=== PATIENT | female | born 1980 | race Caucasian/White ===

== ENCOUNTER → 2017-01-29 | Outpatient (CLI) | payer BC ==
[~2017-01-29] MED LIST: ACHYD1T PO; CIPR-225 PO; DCS100C PO; DOCU100C37 PO; HYDR-3720 PO; HYDR-3730 PO; IBP800T PO; IBUP-1780 PO; Ibuprofen PO; METR500T PO; MULT1TAB61 PO; OXYC-465 PO
--- NOTE | 2017-01-29 10:11 | Diagnostic Imaging Report ---
PROCEDURE: US Gallbladder. TECHNIQUE: Multiple real-time grayscale images were obtained over the right upper quadrant in various projections. INDICATION: Right upper quadrant pain. FINDINGS: The pancreas appears unremarkable. The liver is fairly homogeneous with no focal lesion. It is measuring 18.6 cm in the diagonal craniocaudal dimension which is near the upper limits of normal. Hepatopetal flow in the portal vein is seen. The gallbladder demonstrates no stones or wall thickening. The CBD is 3 mm in caliber. The sonographic Lopes sign is reportedly negative. The right kidney is 10.8 cm in length with no hydronephrosis or focal lesion seen. No fluid collection in the upper right abdomen is noted. IMPRESSION: Unremarkable exam. Dictated by: Dictated on workstation # [id number]
== END ==
LOC: RAD 07:18
PROVIDERS: ATTEND Internal Medicine
DX: R10.11 Right upper quadrant pain (principal)
CPT/HCPCS: 76705

== ENCOUNTER → 2017-03-23 | Outpatient (CLI) | payer BC ==
[~2017-03-23] MED LIST changes: +CATHETER FLUSH 10 ML SYR IV PRN; +HYDR-3816 PO; +morphine INJ 10 MG/ML 1ML (SYR OR VIAL) IVP ONE; +morphine INJ 10 MG/ML 1ML (SYR OR VIAL) ONE
--- NOTE | 2017-03-23 20:41 | Diagnostic Imaging Report ---
Hepatobiliary scan with ejection fraction INDICATION: Right upper quadrant pain The study was performed following administration of 4.5 mCi of Choletec. The previous nuclear medicine hepatobiliary scan of 11/01/12 failed to show any sign of acute cholecystitis or for obstruction of the common bile duct. The ejection fraction was 58% (normal greater than 35%). On this exam, there was no uptake of the radiotracer by the gallbladder until 90 minutes (normal uptake less than 30 minutes). The reason for the diminished uptake is not certain. At 90 minutes, 2.8 mg of morphine was administered. The subsequent images performed over the next 45 minutes revealed that there was accumulation of the radiotracer within the gallbladder. There is also extension of the radiotracer into the small bowel indicating that the common bile duct is not obstructed. The ejection fraction is not calculated for this exam. IMPRESSION: 1. There is delayed uptake of the radiotracer by the gallbladder. This does suggest chronic cholecystitis. 2. There is no evidence for obstruction of the common bile duct. 3. The ejection fraction was not obtained. ADDENDUM: The patient was instructed by Dr. Braden Pederson to pump and discard breastmilk for 48 hours following the exam. Dictated by: Dictated on workstation # [id number]
== END ==
LOC: CARD 09:54
PROVIDERS: ATTEND Obstetrics & Gynecology
DX: R10.11 Right upper quadrant pain (principal)
CPT/HCPCS: 78226

== ENCOUNTER 2017-05-14 08:57 | Outpatient (CLI) | payer BC ==
[~2017-05-14] VITALS: Ht 162.6 cm; Wt 68.0 kg
[~2017-05-14 08:57] MED LIST changes: -CATHETER FLUSH 10 ML SYR IV PRN; -HYDR-3816 PO; -morphine INJ 10 MG/ML 1ML (SYR OR VIAL) IVP ONE; -morphine INJ 10 MG/ML 1ML (SYR OR VIAL) ONE
[2017-05-14 09:10] VITALS: BP 122/84
[2017-05-14 09:36] LABS: BASOPHILS % (AUTO) 1 % (0-10); EOSINOPHILS % (AUTO) 1 % (0-10); LYMPHOCYTES # (AUTO) 0.9 X 10^3 (1.0-4.0); LYMPHOCYTES % (AUTO) 23 % (12-44); MEAN CORPUSCULAR HEMOGLOBIN 29 PG (25-34); MEAN CORPUSCULAR HGB CONC 34 G/DL (32-36); MEAN CORPUSCULAR VOLUME 86 FL (80-99); MONOCYTES # (AUTO) 0.4 X 10^3 (0.0-1.0); MONOCYTES % (AUTO) 9 % (0-12); NEUTROPHILS # (AUTO) 2.8 X 10^3 (1.8-7.8); NEUTROPHILS % (AUTO) 67 % (42-75); PLATELET COUNT 192 10^3/uL (130-400); RED CELL DISTRIBUTION WIDTH 13.2 % (10.0-14.5); WHITE BLOOD COUNT 4.1 10^3/uL (4.3-11.0)
== END 2017-05-14 10:24 | disposition home or self-care (01) ==
LOC: PREOP 08:57
PROVIDERS: ATTEND Surgery
DX: Z01.812 Encounter for preprocedural laboratory examination (principal); K81.9 Cholecystitis, unspecified
CPT/HCPCS: 36415; 85025; 87081

== ENCOUNTER 2017-05-17 07:00 | Day surgery (SDC) | payer BC ==
[~2017-05-17] VITALS: Ht 162.6 cm; Wt 68.0 kg
[2017-05-17 07:00] VITALS: BP 111/78
[2017-05-17] MEDS ORDERED: BUP/EPI 0.5% 1:200,000 (MARCAINE) 10ML VIAL IJ ONE (07:13)
[2017-05-17] MEDS ORDERED: ceFAZolin 1 GM/NS 50 ML IVPB IV ONE ×2 (07:15)
[2017-05-17] MEDS ORDERED: MIDAZOLAM 2 MG/2 ML (VERSED) VIAL ONE (07:36)
[2017-05-17] MEDS ORDERED: LIDOCAINE PF 2% 5 ML (XYLOCAINE) VIAL ONE (07:36)
[2017-05-17] MEDS ORDERED: ONDANSETRON 4 MG/2 ML (SDV) Z0FRAN ONE ×2 (07:36→09:44)
[2017-05-17] MEDS ORDERED: SEVOFLURANE (ULTANE) 15 ML INHAL SOLN ONE ×2 (07:36→07:40)
[2017-05-17] MEDS ORDERED: proPOfol 200 MG/20 ML (DIPRIVAN) VIAL IV ONE (07:36)
[2017-05-17] MEDS ORDERED: ROCURONIUM 50 MG/5 ML (ZEMURON) VIAL IV ONE (07:36)
[2017-05-17] MEDS ORDERED: DEXAMETHASONE 10 MG/ML (DECADRON) 1 ML VIAL ONE (07:36)
[2017-05-17] MEDS ORDERED: fentaNYL INJECTION 100 MCG/2 ML AMP ONE ×2 (07:36→08:57)
--- NOTE | 2017-05-17 07:46 | Progress Note-Pre Operative ---
Pre-Operative Progress Note H&P Reviewed The H&P was reviewed, patient examined and no changes noted. Date Seen by Provider: May 17, 2017 Time Seen by Provider: 07:35 Date H&P Reviewed: May 17, 2017 Time H&P Reviewed: 07:40 Pre-Operative Diagnosis: symptomatic Chronic Acalculous cholecystitis TAWNYA GOODE APRN May 17, 2017 7:46 am
[2017-05-17] MEDS: LACTATED RINGERS 1,000 ML IV PRN ×2 (07:48→08:46)
[2017-05-17] MEDS ORDERED: ONDANSETRON 4 MG/2 ML (SDV) Z0FRAN IVP PRN ×2 (08:00→09:00)
[2017-05-17] MEDS ORDERED: morphine INJ 10 MG/ML 1ML (SYR OR VIAL) IVP PRN ×2 (08:00→09:00)
[2017-05-17] MEDS ORDERED: HYDROcodone/APAP 5 MG/325 MG (LORTAB) TAB PO ONE (08:00)
[2017-05-17] MEDS ORDERED: ACETAMINOPHEN 325 MG TABLET/CAPLET (TYLENOL) PO PRN (08:00)
[2017-05-17] MEDS ORDERED: MEPERIDINE (DEMEROL) INJ 50 MG/ML IVP PRN (09:00)
[2017-05-17] MEDS ORDERED: NEOSTIGMINE (BLOXIVERZ ) 1 MG/1ML 10 ML VIAL ONE (09:12)
[2017-05-17] MEDS ORDERED: GLYCOPYRROLATE 0.2 MG/ML (ROBINUL) 2 ML VIAL ONE (09:12)
--- NOTE | 2017-05-17 09:41 | Progress Note-Post Operative ---
Post-Operative Progess Note Surgeon (s)/Dairy Cattle Farm Manager (s) Surgeon SOLEDAD BOLAÑOS MD Dairy Cattle Farm Manager: reginald walker DIESEL RETROFIT DESIGNER Pre-Operative Diagnosis symptomatic Chronic Acalculous cholecystitis Post-Operative Diagnosis same Procedure & Operative Findings Date of Procedure 05/17/17 Procedure Performed/Findings laparoscopic cholecystectomy. Anesthesia Type GET Estimated Blood Loss Estimated blood loss (mL): minimal Specimens/Packing Specimens Removed gallbladder SOLEDAD BOLAÑOS MD May 17, 2017 9:41 am
[2017-05-17] MEDS ORDERED: MEPERIDINE (DEMEROL) INJ 50 MG/ML ONE (09:44)
[2017-05-17] MEDS ORDERED: morphine INJ 10 MG/ML 1ML (SYR OR VIAL) ONE (09:44)
[2017-05-17] MEDS ORDERED: HYDR-3816 PO (09:45)
--- NOTE | 2017-05-17 09:47 | Discharge Inst-Surgical ---
D/C Lap Instructions-MAMI New, Converted, or Re-Newed RX: RX on Chart Follow Up Appt in 2 weeks Activity as tolerated No driving for 24 hours No driving while on pain medications Incentive Spirometry use every 2 hours while awake Regular Diet Symptoms to Report: Fever over 101 degree F, Nausea/Vomiting Infection Signs and Symptoms to report: Increased redness, Foul odor of wound, Increased drainage Bathing instructions: May shower Operative Area Clean/Dry; Keep incision clean/dry If any problems/questions: Contact your physician or go to Emergency Room SOLEDAD BOLAÑOS MD May 17, 2017 9:47 am
[2017-05-17] MEDS ORDERED: PROMETHAZINE INJ 25 MG/ML (PHENERGAN) AMP ONE (10:17)
[2017-05-17] MEDS ORDERED: PROMETHAZINE INJ 25 MG/ML (PHENERGAN) AMP IVP PRN (10:30)
[2017-05-17 11:10] VITALS: BP 134/85
[2017-05-17 11:45] VITALS: BP 121/77
[2017-05-17 12:15] VITALS: BP 121/80
--- NOTE | 2017-05-17 13:53 | OPERATIVE REPORT ---
DATE OF SERVICE: 05/17/2017 ATTENDING PRIMARY CARE PHYSICIAN: Dr. Ellis. PREOPERATIVE DIAGNOSIS: Symptomatic chronic acalculous cholecystitis. POSTOPERATIVE DIAGNOSIS: Symptomatic chronic acalculous cholecystitis. PROCEDURE: Laparoscopic cholecystectomy. SURGEON: Dr. Bolaños. DECK ENGINE OPERATOR: Osmin Vázquez APRN. ANESTHESIA: General endotracheal. ESTIMATED BLOOD LOSS: Minimal. FINDINGS: Mild gallbladder wall dilatation. No stones identified. DISPOSITION: The patient tolerated the procedure well. INDICATIONS: The patient is a 37-year-old female initially seen by us 06/2016 for appendicitis and underwent a laparoscopic appendectomy as well as an open umbilical hernia repair. She states that shortly after she had lost some weight and developed pain in the right upper abdominal quadrant which was a dull, aching, sharp in nature. She reports that this would radiate toward the back and was associated with nausea as well as a bloating sensation. She had also reported that she did correlate these episodes with greasy and fried foods. A gallbladder ultrasound was performed which was normal. She then underwent a HIDA scan on 03/23/2017 which showed a very low ejection fraction consistent with a chronic acalculous cholecystitis. DESCRIPTION OF PROCEDURE: The patient was brought to the operating room, laid supine on the table. After adequate IV pain and sedating medications and general endotracheal intubation, the abdomen was prepped and draped in standard surgical fashion. Marcaine 0.5% with epinephrine was then used to anesthetize the overlying skin in the left upper abdominal quadrant and a small transverse skin incision made using a 15 blade. An 0 silk suture was applied to the medial aspect of the incision for retraction and a Veress needle inserted with a low opening pressure of 0 mmHg. The abdomen was then insufflated to 15 mmHg pressure. The Veress needle removed and a 5 mm Xcel trocar placed followed by a 5 mm 45 degree angle laparoscope visualizing the peritoneal cavity. A full quadrant abdominal exploration was performed. There was no recurrent umbilical hernia. There was mild gallbladder wall dilatation. No other abnormalities detected. Under direct visualization, we then proceeded to place an infraumbilical 10 mm port after the skin and peritoneal lining were anesthetized using 0.5% Marcaine with epinephrine and a transverse skin incision made using a 15 blade. In a similar manner, a right upper abdominal quadrant 5 mm port was placed. The patient was then placed in reverse Trendelenburg position as well as plane right side up, left side down. The fundus of the gallbladder was then retracted anteriorly and superiorly. The hepatoduodenal ligament was then opened using electrocautery on the hook instrument as well as blunt dissection. The entire critical view of safety was then identified identifying the triangle of Calot as well as the cystic duct and artery going into the gallbladder as well as the liver behind the proximal gallbladder. A timeout was then taken and the cystic duct and artery were then clipped proximally, distally and cut with EndoShears. The gallbladder was then dissected off the liver bed using electrocautery on the hook instrument with visualization of good hemostasis as well as no leaking ducts of Luschka. The gallbladder was removed through the 10 mm port site using an EndoCatch bag. The abdomen was desufflated and remaining ports removed. The fascia to the 10 mm port was then closed using 0 Prolene suture on a UR needle. The remaining ports removed and all skin incisions were closed using 4-0 Monocryl running subcuticular sutures. Wounds were then cleaned and covered with Dermabond. The patient tolerated the procedure well. We will start IV normal pain medication as well as a clear liquid diet. Once she is tolerating clears and has good pain control with oral pain medication and is ambulating well, we will discharge her home. Job ID: [id number] DocumentID: [id number] Dictated Date: 05/17/2017 09:54:36 Shim Plug Cutter Date: 05/17/2017 13:52:38 Dictated By: SOLEDAD BOLAÑOS MD
== END 2017-05-17 13:25 | disposition home or self-care (01) ==
LOC: SDC 07:00
PROVIDERS: ATTEND Surgery
DX: K81.1 Chronic cholecystitis (principal)
CPT/HCPCS: 84703; 94664

== ENCOUNTER 2017-10-08 13:00 | Day surgery (SDC) | payer BC, OTHER ==
[~2017-10-08] VITALS: Ht 162.6 cm; Wt 68.0 kg
[~2017-10-08 13:00] MED LIST changes: +HYDR-34 PO
--- OUTSIDE RECORDS SUMMARY | 2017-10-08 13:03 | XMS REPORT | Continuity of Care Document ---
Author Author [facility] Organization [facility] Address Unknown Phone Unavailable Allergies Active Description Code Type Severity Reaction Onset Reported/Identified Relationship to Patient Clinical Status Yes No Known Drug Allergies [id number] Drug Allergy Unknown N/A 05/14/2017 Medications There is no data. Problems Date Dx Coded Attending Type Code Diagnosis Diagnosed By 06/24/2009 Ot 285.9 ANEMIA NOS 06/24/2009 Ot 648.22 ANEMIA- DELIVERED W P/P 06/24/2009 Ot V06.1 DIPHTHERIA- TETANUS-PERTUSSIS, COMBINED [ 06/24/2009 Ot V27.0 DELIVER- SINGLE LIVEBORN 08/19/2011 Ot 658.01 OLIGOHYDRAMNIOS-DELIVER 08/19/2011 Ot 663.31 CORD ENTANGLE NEC-DELIV 08/19/2011 Ot V04.81 ND FOR PROPHYLACTIC VACCIN AND INOCULATI 08/19/2011 Ot V06.1 DIPHTHERIA- TETANUS-PERTUSSIS, COMBINED [ 08/19/2011 Ot V27.0 DELIVER- SINGLE LIVEBORN 12/10/2012 LOUIS POLLACK MD Ot 724.2 LUMBAGO 12/10/2012 LOUIS POLLACK MD Ot V57.1 PHYSICAL THERAPY NEC 02/28/2014 LOUIS POLLACK MD Ot 648.91 OTH CURR COND-DELIVERED 02/28/2014 LOUIS POLLACK MD Ot 659.41 GRAND MULTIPARITY-DELIV 02/28/2014 LOUIS POLLACK MD Ot 663.31 CORD ENTANGLE NEC-DELIV 02/28/2014 LOUIS POLLACK MD Ot V02.51 GROUP B STREPT CARRIER/SUSPECTED CARRIER 02/28/2014 LOUIS POLLACK MD Ot V06.1 [id number], COMBINED [ 02/28/2014 LOUIS POLLACK MD Ot V27.0 DELIVER-SINGLE LIVEBORN 07/21/2014 Ot 724.2 07/21/2014 Ot 789.01 07/21/2014 Ot 789.01 09/14/2014 Ot 724.2 09/14/2014 Ot 789.01 09/14/2014 Ot 789.01 07/19/2016 Ot 724.2 LUMBAGO 07/19/2016 Ot 789.01 ABDOMINAL PAIN, RIGHT UPPER QUADRANT 07/19/2016 Ot 789.01 ABDOMINAL PAIN, RIGHT UPPER QUADRANT 07/20/2016 LOUIS POLLACK MD, Ot K35.80 UNSPECIFIED ACUTE APPENDICITIS 07/20/2016 LOUIS POLLACK MD, Ot K42.9 UMBILICAL HERNIA WITHOUT OBSTRUCTION OR 07/20/2016 LOUIS POLLACK MD, Ot O60.14X0 LABOR THIRD TRI W DELIVE 07/20/2016 LOUIS POLLACK MD, Ot O99.63 DISEASES OF THE DIGESTIVE SYSTEM COMPLIC 07/20/2016 LOUIS POLLACK MD, Ot Z37.0 SINGLE LIVE 07/20/2016 LOUIS POLLACK MD, Ot Z3A.35 35 WEEKS GESTATION OF 02/13/2017 Ot 724.2 LUMBAGO 02/13/2017 Ot 789.01 ABDOMINAL PAIN, RIGHT UPPER QUADRANT 02/13/2017 Ot 789.01 ABDOMINAL PAIN, RIGHT UPPER QUADRANT 02/13/2017 JOSE ROBLES MD Ot R10.11 RIGHT UPPER QUADRANT PAIN 02/14/2017 Ot 724.2 LUMBAGO 02/14/2017 Ot 789.01 ABDOMINAL PAIN, RIGHT UPPER QUADRANT 02/14/2017 Ot 789.01 ABDOMINAL PAIN, RIGHT UPPER QUADRANT 02/14/2017 JOSE ROBLES MD Ot R10.11 RIGHT UPPER QUADRANT PAIN 02/19/2017 JOSE ROBLES MD Ot R10.11 RIGHT UPPER QUADRANT PAIN 04/04/2017 LOUIS POLLACK MD, Ot R10.11 RIGHT UPPER QUADRANT PAIN 05/14/2017 SOLEDAD BOLAÑOS MD, Ot K81.9 CHOLECYSTITIS, UNSPECIFIED 05/14/2017 SOLEDAD BOLAÑOS MD, Ot Z01.812 ENCOUNTER FOR PREPROCEDURAL LABORATORY E 05/15/2017 SOLEDAD BOLAÑOS MD, Ot81.9 CHOLECYSTITIS, UNSPECIFIED 05/15/2017 SOLEDAD BOLAÑOS MD, Ot Z01.812 ENCOUNTER FOR PREPROCEDURAL LABORATORY E 05/17/2017 SOLEDAD BOLAÑOS MD, Ot K81.1 CHRONIC CHOLECYSTITIS 05/18/2017 SOLEDAD BOLAÑOS MD, Ot K81.1 CHRONIC CHOLECYSTITIS Procedures Code Description Performed By Performed On 73.4 MEDICAL INDUCTION LABOR 06/22/2009 73.59 MANUAL ASSIST DELIV NEC 06/22/2009 73.4 MEDICAL INDUCTION LABOR 08/18/2011 73.59 MANUAL ASSIST DELIV NEC 08/18/2011 75.69 REPAIR OB LACERATION NEC 02/27/2014 [id number] RESECTION OF APPENDIX, PERCUTANEOUS ENDO 07/20/2016 [id number] REPAIR ABDOMINAL WALL, OPEN APPROACH 07/20/2016 [id number] DELIVERY OF PRODUCTS OF CONCEPTION, EXTE 07/20/2016 Results Test Result Range Complete urinalysis with reflex to culture - 07/19/16 04:55 Urine color determination YELLOW NRG Urine clarity determination CLEAR NRG Urine pH measurement by test strip 7 5-9 Specific gravity of urine by test strip 1.015 1.016- 1.022 Urine protein assay by test strip, semi-quantitative NEGATIVE NEGATIVE Urine glucose detection by automated test strip NEGATIVE NEGATIVE Erythrocytes detection in urine sediment by light microscopy NEGATIVE NEGATIVE Urine ketones detection by automated test strip NEGATIVE NEGATIVE Urine nitrite detection by test strip NEGATIVE NEGATIVE Urine total bilirubin detection by test strip NEGATIVE NEGATIVE Urine urobilinogen measurement by automated test strip (mass/volume) NORMAL NORMAL Urine leukocyte esterase detection by dipstick 1+ NEGATIVE Automated urine sediment erythrocyte count by microscopy (number/high power field) NONE NRG Automated urine sediment leukocyte count by microscopy (number/high power field ) RARE NRG Bacteria detection in urine sediment by light microscopy TRACE NRG Squamous epithelial cells detection in urine sediment by light microscopy 10-25 NRG Crystals detection in urine sediment by light microscopy NONE NRG Casts detection in urine sediment by light microscopy NONE NRG Mucus detection in urine sediment by light microscopy NEGATIVE NRG Complete urinalysis with reflex to culture NO NRG Complete blood count (CBC) with automated white blood cell (WBC) differential - 07/19/16 06:13 Blood leukocytes automated count (number/volume) 9.1 10*3/uL 4.3-11.0 Blood erythrocytes automated count (number/volume) 3.44 10*6/uL 4.35-5.85 Venous blood hemoglobin measurement (mass/volume) 10.1 g/dL 11.5-16.0 Blood hematocrit (volume fraction) 30 % 35-52 Automated erythrocyte mean corpuscular volume 86 [foz_us] 80-99 Automated erythrocyte mean corpuscular hemoglobin (mass per erythrocyte) 29 pg 25-34 Automated erythrocyte mean corpuscular hemoglobin concentration measurement ( mass/volume) 34 g/dL 32-36 Automated erythrocyte distribution width ratio 12.7 % 10.0-14.5 Automated blood platelet count (count/volume) 108 10*3/uL 130-400 Automated blood platelet mean volume measurement 12.6 [foz_us] 7.4-10.4 Automated blood neutrophils/100 leukocytes 84 % 42-75 Automated blood lymphocytes/100 leukocytes 10 % 12-44 Blood monocytes/100 leukocytes 6 % 0-12 Automated blood eosinophils/100 leukocytes 0 % 0-10 Automated blood basophils/100 leukocytes 0 % 0-10 Blood neutrophils automated count (number/volume) 7.7 10*3 1.8-7.8 Blood lymphocytes automated count (number/volume) 0.9 10*3 1.0-4.0 Blood monocytes automated count (number/volume) 0.5 10*3 0.0-1.0 Automated eosinophil count 0.0 10*3/uL 0.0-0.3 Automated blood basophil count (count/volume) 0.0 10*3/uL 0.0-0.1 Comprehensive metabolic panel - 07/19/16 06:13 Serum or plasma sodium measurement (moles/volume) 133 mmol/L 135-145 Serum or plasma potassium measurement (moles/volume) 3.7 mmol/L 3.6-5.0 Serum or plasma chloride measurement (moles/volume) 104 mmol/L 98-107 Carbon dioxide 23 mmol/L 21-32 Serum or plasma anion gap determination (moles/volume) 6 mmol/L 5-14 Serum or plasma urea nitrogen measurement (mass/volume) 10 mg/dL 7-18 Serum or plasma creatinine measurement (mass/volume) 0.70 mg/dL 0.60-1.30 Serum or plasma urea nitrogen/creatinine mass ratio 14 NRG Serum or plasma creatinine measurement with calculation of estimated glomerular filtration rate > NRG Serum or plasma glucose measurement (mass/volume) 154 mg/dL 70-105 Serum or plasma calcium measurement (mass/volume) 8.1 mg/dL 8.5-10.1 Serum or plasma total bilirubin measurement (mass/volume) 0.4 mg/dL 0.1-1.0 Serum or plasma alkaline phosphatase measurement (enzymatic activity/volume) 113 U/L 40-136 Serum or plasma aspartate aminotransferase measurement (enzymatic activity/ volume) 13 U/L 5-34 Serum or plasma alanine aminotransferase measurement (enzymatic activity/volume ) 10 U/L 0-55 Serum or plasma protein measurement (mass/volume) 5.9 g/dL 6.4-8.2 Serum or plasma albumin measurement (mass/volume) 3.0 g/dL 3.2-4.5 Lactate dehydrogenase 1 [enzymatic activity/volume] in serum or plasma - 06:13 Lactate dehydrogenase 1 [enzymatic activity/volume] in serum or plasma 169 U/L 125-220 Blood type T Indirect antibody screen panel - 07/19/16 06:13 ABO+Rh group BP NRG Transfusion band number [id number] Blood group antibody screen NEGATIVE NR Complete blood count (CBC) with automated white blood cell (WBC) differential - 07/20/16 05:46 Blood leukocytes automated count (number/volume) 9.5 10*3/uL 4.3-11.0 Blood erythrocytes automated count (number/volume) 3.36 10*6/uL 4.35-5.85 Venous blood hemoglobin measurement (mass/volume) 9.9 g/dL 11.5-16.0 Blood hematocrit (volume fraction) 29 % 35-52 Automated erythrocyte mean corpuscular volume 87 [foz_us] 80-99 Automated erythrocyte mean corpuscular hemoglobin (mass per erythrocyte) 30 pg 25-34 Automated erythrocyte mean corpuscular hemoglobin concentration measurement ( mass/volume) 34 g/dL 32-36 Automated erythrocyte distribution width ratio 12.8 % 10.0-14.5 Automated blood platelet count (count/volume) 111 10*3/uL 130-400 Automated blood platelet mean volume measurement 12.7 [foz_us] 7.4-10.4 Automated blood neutrophils/100 leukocytes 86 % 42-75 Automated blood lymphocytes/100 leukocytes 6 % 12-44 Blood monocytes/100 leukocytes 8 % 0-12 Automated blood eosinophils/100 leukocytes 0 % 0-10 Automated blood basophils/100 leukocytes 0 % 0-10 Blood neutrophils automated count (number/volume) 8.2 10*3 1.8-7.8 Blood lymphocytes automated count (number/volume) 0.6 10*3 1.0-4.0 Blood monocytes automated count (number/volume) 0.7 10*3 0.0-1.0 Automated eosinophil count 0.0 10*3/uL 0.0-0.3 Automated blood basophil count (count/volume) 0.0 10*3/uL 0.0-0.1 Methicillin resistant Staphylococcus aureus (MRSA) screening culture - 09:15 Methicillin resistant Staphylococcus aureus (MRSA) screening culture NEG NRG Complete blood count (CBC) with automated white blood cell (WBC) differential - 05/14/17 09:20 Blood leukocytes automated count (number/volume) 4.1 10*3/uL 4.3-11.0 Blood erythrocytes automated count (number/volume) 4.40 10*6/uL 4.35-5.85 Venous blood hemoglobin measurement (mass/volume) 12.8 g/dL 11.5-16.0 Blood hematocrit (volume fraction) 38 % 35-52 Automated erythrocyte mean corpuscular volume 86 [foz_us] 80-99 Automated erythrocyte mean corpuscular hemoglobin (mass per erythrocyte) 29 pg 25-34 Automated erythrocyte mean corpuscular hemoglobin concentration measurement ( mass/volume) 34 g/dL 32-36 Automated erythrocyte distribution width ratio 13.2 % 10.0-14.5 Automated blood platelet count (count/volume) 192 10*3/uL 130-400 Automated blood platelet mean volume measurement 12.0 [foz_us] 7.4-10.4 Automated blood neutrophils/100 leukocytes 67 % 42-75 Automated blood lymphocytes/100 leukocytes 23 % 12-44 Blood monocytes/100 leukocytes 9 % 0-12 Automated blood eosinophils/100 leukocytes 1 % 0-10 Automated blood basophils/100 leukocytes 1 % 0-10 Blood neutrophils automated count (number/volume) 2.8 10*3 1.8-7.8 Blood lymphocytes automated count (number/volume) 0.9 10*3 1.0-4.0 Blood monocytes automated count (number/volume) 0.4 10*3 0.0-1.0 Automated eosinophil count 0.0 10*3/uL 0.0-0.3 Automated blood basophil count (count/volume) 0.0 10*3/uL 0.0-0.1 Urine beta human chorionic gonadotropin (hCG) measurement - 05/17/17 07:05 Urine beta human chorionic gonadotropin (hCG) measurement NEGATIVE NEGATIVE Encounters ACCT No. Visit Date/Time Discharge Status Pt. Type Provider Facility Loc./Unit Complaint [id number] 05/17/2017 07:00:00 05/17/2017 13:25:00 DIS Outpatient SOLEDAD BOLAÑOS MD [facility] SDC CHRONIC ACALCULUS CHOLECYSTITIS [id number] 05/14/2017 08:57:00 05/14/2017 10:24:00 DIS Outpatient SOLEDAD BOLAÑOS MD [facility] PREOP LAPAROSCOPIC CHOLECYSTECTOMY [id number] 03/23/2017 09:54:00 03/23/2017 23:59:59 CLS Outpatient LOUIS POLLACK MD [facility] CARD RUQ PAIN [id number] 01/29/2017 07:18:00 01/29/2017 23:59:59 CLS Outpatient JOSE ROBLES MD [facility] RAD RUQ ABD PAIN [id number] 07/19/2016 08:01:00 07/20/2016 18:10:00 DIS Inpatient LOUIS POLLACK MD [facility] LDRP CONTRACTIONS, LABOR, THROMBOCYTOPENIA [id number] 02/27/2014 06:21:00 02/28/2014 20:25:00 DIS Inpatient LOUIS POLLACK MD [facility] LDRP INDUCTION [id number] 11/28/2012 13:45:00 12/10/2012 11:50:00 DIS Outpatient LOUIS POLLACK MD [facility] REHAB LOW BACK PAIN [id number] 11/01/2012 09:49:00 Document Registration [id number] 10/22/2012 08:12:00 Document Registration [id number] 08/18/2011 07:06:00 Document Registration [id number] 06/22/2009 06:45:00 Document Registration
[2017-10-08 13:30] VITALS: BP 119/73
[2017-10-08] MEDS ORDERED: fentaNYL INJECTION 100 MCG/2 ML AMP ONE (13:32)
[2017-10-08] MEDS ORDERED: MIDAZOLAM 2 MG/2 ML (VERSED) VIAL ONE (13:32)
[2017-10-08] MEDS ORDERED: LACTATED RINGERS 1,000 ML IV PRN (13:35)
[2017-10-08 13:41] LABS: BASOPHILS % (AUTO) 1 % (0-10); EOSINOPHILS % (AUTO) 0 % (0-10); HEMATOCRIT 36 % (35-52); HEMOGLOBIN 12.9 G/DL (11.5-16.0); LYMPHOCYTES # (AUTO) 1.2 X 10^3 (1.0-4.0); LYMPHOCYTES % (AUTO) 25 % (12-44); MEAN CORPUSCULAR HEMOGLOBIN 31 PG (25-34); MEAN CORPUSCULAR HGB CONC 36 G/DL (32-36); MEAN CORPUSCULAR VOLUME 85 FL (80-99); MEAN PLATELET VOLUME 11.3 FL (7.4-10.4); MONOCYTES # (AUTO) 0.4 X 10^3 (0.0-1.0); MONOCYTES % (AUTO) 8 % (0-12); NEUTROPHILS # (AUTO) 3.2 X 10^3 (1.8-7.8); NEUTROPHILS % (AUTO) 66 % (42-75); PLATELET COUNT 205 10^3/uL (130-400); RED BLOOD COUNT 4.22 10^6/uL (4.35-5.85); RED CELL DISTRIBUTION WIDTH 13.2 % (10.0-14.5); WHITE BLOOD COUNT 4.8 10^3/uL (4.3-11.0)
[2017-10-08] MEDS ORDERED: ONDANSETRON 4 MG/2 ML (SDV) Z0FRAN IV ONE (13:45)
[2017-10-08] MEDS ORDERED: MIDAZOLAM 2 MG/2 ML (VERSED) VIAL IV ONE (13:45)
[2017-10-08] MEDS ORDERED: FAMOTIDINE 20MG/2ML IV (PEPCID) IV ONE (13:45)
[2017-10-08] MEDS ORDERED: ceFAZolin 1 GM/NS 100 ML IVPB IV ONE ×2 (13:45)
--- NOTE | 2017-10-08 13:53 | Progress Note-Pre Operative ---
Pre-Operative Progress Note H&P Reviewed The H&P was reviewed, patient examined and no changes noted. Date Seen by Provider: Oct 08, 2017 Time Seen by Provider: 13:53 Date H&P Reviewed: Oct 08, 2017 Time H&P Reviewed: 13:53 Pre-Operative Diagnosis: Blighted ovum at 10-11 weeks' gestation LOUIS POLLACK MD Oct 08, 2017 1:53 pm
[2017-10-08] MEDS ORDERED: D5 LR IV SOLUTION 1,000 ML IV SCH (13:54)
--- NOTE | 2017-10-08 13:54 | Progress Note-Post Operative ---
Post-Operative Progess Note Surgeon (s)/Stone Layout Marker (s) Surgeon LOUIS POLLACK MD Stone Layout Marker: None Pre-Operative Diagnosis Blighted ovum at 10-11 weeks' gestation Post-Operative Diagnosis Same with pathology pending Procedure & Operative Findings Date of Procedure 10/08/17 Procedure Performed/Findings D&C for first trimester blighted ovum Anesthesia Type GETA Estimated Blood Loss Estimated blood loss (mL): 100cc Specimens/Packing Specimens Removed Uterine contents/POC Packing: None LOUIS OPLLACK MD Oct 08, 2017 13:54
[2017-10-08] MEDS ORDERED: OXYC-465 PO (13:56)
--- NOTE | 2017-10-08 13:57 | Discharge Instructions ---
Discharge Instructions Discharge Medications New, Converted or Re-Newed RX: RX on Chart Patient Instructions Patient Instructions: As directed Return to The Hospital For: As directed Activity & Diet Discharge Diet: No Restrictions Activity as Tolerated: No Orders-Post D/C & Referrals Follow Up Appt: Call to make follow up appt. for patient in 2 weeks. Activity: Rest for 24 hours, than as tolerated. Diet: As tolerated-Clear Liquids only if nauseated. May shower or tub bathe as desired. No driving for 24 hours, no alcoholic beverages for 24 hours, and nothing per vagina (no tampons, douching, or intercoarse) for 2 weeks. Patient to return to the clinic as soon as possible for: Temperature greater than 101F, Severe Pain, Foul discharge from incision or vagina, Excessive Bleeding (more than a period). LOUIS POLLACK MD Oct 08, 2017 1:57 pm
[2017-10-08] MEDS ORDERED: KETOROLAC 30 MG/ML VIAL IVP ONE (14:00)
[2017-10-08] MEDS ORDERED: MEPERIDINE (DEMEROL) INJ 100 MG/ML IM ONE (14:00)
[2017-10-08] MEDS ORDERED: PROMETHAZINE INJ 25 MG/ML (PHENERGAN) AMP IM ONE (14:00)
[2017-10-08] MEDS ORDERED: ONDANSETRON 4 MG/2 ML (SDV) Z0FRAN IVP PRN ×2 (14:00→14:30)
[2017-10-08] MEDS ORDERED: oxyCODONE/APAP 10/325MG (PERCOCET 10) TABLET PO PRN (14:00)
[2017-10-08] MEDS ORDERED: morphine INJ 10 MG/ML 1ML (SYR OR VIAL) ONE (14:08)
[2017-10-08] MEDS ORDERED: SEVOFLURANE (ULTANE) 15 ML INHAL SOLN ONE (14:32)
[2017-10-08] MEDS ORDERED: proPOfol 200 MG/20 ML (DIPRIVAN) VIAL IV ONE (14:32)
[2017-10-08] MEDS ORDERED: ONDANSETRON 4 MG/2 ML (SDV) Z0FRAN ONE (14:32)
[2017-10-08] MEDS ORDERED: DEXAMETHASONE 10 MG/ML (DECADRON) 1 ML VIAL ONE (14:32)
[2017-10-08] MEDS ORDERED: LIDOCAINE PF 2% 5 ML (XYLOCAINE) VIAL ONE (14:32)
[2017-10-08] MEDS: morphine INJ 10 MG/ML 1ML (SYR OR VIAL) IVP PRN ×2 (14:42→14:50)
[2017-10-08 15:25] VITALS: BP 128/80
[2017-10-08 15:55] VITALS: BP 108/69
--- NOTE | 2017-10-08 16:22 | Anesthesia-General Post-Op ---
General Patient Condition Mental Status/LOC: Same as Preop Cardiovascular: Satisfactory Nausea/Vomiting: Absent Respiratory: Satisfactory Pain: Controlled Complications: Absent Post Op Complications Complications None Follow Up Care/Instructions Patient Instructions None needed. Anesthesia/Patient Condition Patient Condition Patient is doing well, no complaints, stable vital signs, no apparent adverse anesthesia problems. No complications reported per nursing. CHANEL BAUMANN CRNA Oct 08, 2017 16:22
[2017-10-08 16:25] VITALS: BP 102/60
[2017-10-08 17:10] VITALS: BP 102/60
--- NOTE | 2017-10-08 22:51 | OPERATIVE REPORT ---
DATE OF SERVICE: 10/08/2017 PREOPERATIVE DIAGNOSIS: Blighted ovum in the first trimester. POSTOPERATIVE DIAGNOSIS: Blighted ovum in the first trimester. OPERATIVE PROCEDURE: D and C for first trimester blighted ovum. OPERATIVE DESCRIPTION: With the patient in supine position under satisfactory general anesthesia, she was repositioned in dorsal lithotomy position in the Benedicto stirrups and prepped and draped in the usual fashion for vaginal surgery. The urinary bladder was drained with a straight catheter. A weighted speculum was placed in the posterior fornix of vagina, cervix exposed and grasped anteriorly with single tooth tenaculum. The uterus was sounded to 14 cm with uterine sound. The cervix was then serially dilated to a #9 Hegar dilator. A #9 curved suction curette was introduced and a large amount of trophoblastic decidual appearing tissue, blood clot, amniotic fluid and debris were evacuated. The endometrial cavity was sharply curettaged in all 4 quadrants and suction curette was reintroduced and all blood clot and debris evacuated from the uterine cavity. There was minimal bleeding at the cervical os on completion of the procedure. The tenaculum was removed. There was some bleeding from both puncture sites. This was touched with silver nitrate to effect hemostasis. With hemostasis satisfactory, the procedure was complete. Sponge and needle counts were correct. Estimated blood loss was around 100 mL. The patient was uneventfully awakened from her general anesthesia and transferred to recovery in stable condition with plans for discharge home PAR. Job ID: [id number] DocumentID: [id number] Dictated Date: 10/08/2017 14:18:24 Rn Cvicu Date: 10/08/2017 22:50:25 Dictated By: LOUIS POLLACK MD
== END 2017-10-08 17:10 | disposition home or self-care (01) ==
LOC: SDC 13:00
PROVIDERS: ATTEND Obstetrics & Gynecology
DX: O02.1 Missed abortion (principal); Z11.2 Encounter for screening for other bacterial diseases
CPT/HCPCS: 36415; 85025; 87081

== ENCOUNTER 2018-09-04 12:58 | Inpatient (IN) | payer OTHER ==
[2018-09-04] VITALS (35 sets, daily range): BP systolic 108–157; BP diastolic 62–89
[~2018-09-04] VITALS: Ht 165.1 cm; Wt 83.2 kg
--- NOTE | 2018-09-04 12:45 | NUR ---
Arrived to unit accompanied by for induction of labor due to pre-eclampsia/platelets. Wt obtained. to room 320, gowned and urine sample obtained. to bed and monitors on. Oriented to room, call light and surroundings. Bed controls explained. plan of care reviewed with pt and .
[~2018-09-04 12:58] MED LIST changes: -MULT-192 PO; -OXYC1TAB87 PO
--- OUTSIDE RECORDS SUMMARY | 2018-09-04 13:20 | XMS REPORT | Continuity of Care Document ---
Author Author [facility] Organization [facility] Address Unknown Phone Unavailable Allergies Active Description Code Type Severity Reaction Onset Reported/Identified Relationship to Patient Clinical Status Yes No Known Drug Allergies [id number] Drug Allergy Unknown N/A 05/14/2017 Medications There [...] CARRIER 02/28/2014 LOUIS POLLACK MD Ot V06.1 [id number], COMBINED [ 02/28/2014 LOUIS POLLACK MD Ot [...] MD, Ot81.9 CHOLECYSTITIS, UNSPECIFIED 05/15/2017 SOLEDAD BOLAÑOS MD Ot Z01.812 ENCOUNTER FOR PREPROCEDURAL LABORATORY E 05/17/2017 SOLEDAD BOLAÑOS MD Ot K81.1 CHRONIC CHOLECYSTITIS 05/18/2017 SOLEDAD BOLAÑOS MD, Ot K81.1 CHRONIC CHOLECYSTITIS 10/05/2017 Ot 724.2 LUMBAGO 10/05/2017 Ot 789.01 ABDOMINAL PAIN, RIGHT UPPER QUADRANT 10/05/2017 Ot 789.01 ABDOMINAL PAIN, RIGHT UPPER QUADRANT 10/05/2017 TRAVIS LOPEZ, JOSE Douglass Ot R10.11 RIGHT UPPER QUADRANT PAIN 10/05/2017 LOUIS POLLACK MD Ot R10.11 RIGHT UPPER QUADRANT PAIN 10/08/2017 LOUIS POLLACK MD Ot O02.1 MISSED 10/08/2017 LOUIS POLLACK MD Ot Z11.2 ENCOUNTER FOR SCREENING FOR OTHER BACTER 10/09/2017 LOUIS POLLACK MD Ot O02.1 MISSED 10/09/2017 LOUIS POLLACK MD Ot Z11.2 ENCOUNTER FOR SCREENING FOR OTHER BACTER 10/10/2017 LOUIS POLLACK MD Ot O02.1 MISSED 10/10/2017 LOUIS POLLACK MD Ot Z11.2 ENCOUNTER FOR SCREENING FOR OTHER BACTER 10/16/2017 LOUIS POLLACK MD Ot O02.1 MISSED 10/16/2017 LOUIS POLLACK MD Ot Z11.2 ENCOUNTER FOR SCREENING FOR OTHER BACTER 06/12/2018 LOUIS POLLACK MD Ot O02.0 BLIGHTED OVUM AND NONHYDATIDIFORM MOLE 06/12/2018 LOUIS POLLACK MD Ot Z11.2 ENCOUNTER FOR SCREENING FOR OTHER BACTER 06/12/2018 LOUIS POLLACK MD Ot O02.0 BLIGHTED OVUM AND NONHYDATIDIFORM MOLE 06/12/2018 LOUIS POLLACK MD Ot Z11.2 ENCOUNTER FOR SCREENING FOR OTHER BACTER Procedures Code Description Performed By Performed On 73.4 MEDICAL INDUCTION LABOR 06/22/2009 73.59 MANUAL ASSIST DELIV NEC 06/22/2009 73.4 MEDICAL INDUCTION LABOR 08/18/2011 73.59 MANUAL ASSIST DELIV NEC 08/18/2011 75.69 REPAIR OB LACERATION NEC 02/27/2014 [id number] RESECTION OF APPENDIX, PERCUTANEOUS ENDO 07/20/2016 [id number] REPAIR ABDOMINAL WALL, OPEN APPROACH 07/20/2016 [id number] DELIVERY OF PRODUCTS OF CONCEPTION, EXTE 07/20/2016 [...] ABO+Rh group BP NRG Transfusion band number [id number] NRG Blood group antibody screen NEGATIVE NRG Complete blood count (CBC) with automated [...] human chorionic gonadotropin (hCG) measurement NEGATIVE NEGATIVE Methicillin resistant Staphylococcus aureus (MRSA) screening culture - 13:15 Methicillin resistant Staphylococcus aureus (MRSA) screening culture NEG NRG Complete blood count (CBC) with automated white blood cell (WBC) differential - 10/08/17 13:32 Blood leukocytes automated count (number/volume) 4.8 10*3/uL 4.3-11.0 Blood erythrocytes automated count (number/volume) 4.22 10*6/uL 4.35-5.85 Venous blood hemoglobin measurement (mass/volume) 12.9 g/dL 11.5-16.0 Blood hematocrit (volume fraction) 36 % 35-52 Automated erythrocyte mean corpuscular volume 85 [foz_us] 80-99 Automated erythrocyte mean corpuscular hemoglobin (mass per erythrocyte) 31 pg 25-34 Automated erythrocyte mean corpuscular hemoglobin concentration measurement ( mass/volume) 36 g/dL 32-36 Automated erythrocyte distribution width ratio 13.2 % 10.0-14.5 Automated blood platelet count (count/volume) 205 10*3/uL 130-400 Automated blood platelet mean volume measurement 11.3 [foz_us] 7.4-10.4 Automated blood neutrophils/100 leukocytes 66 % 42-75 Automated blood lymphocytes/100 leukocytes 25 % 12-44 Blood monocytes/100 leukocytes 8 % 0-12 Automated blood eosinophils/100 leukocytes 0 % 0-10 Automated blood basophils/100 leukocytes 1 % 0-10 Blood neutrophils automated count (number/volume) 3.2 10*3 1.8-7.8 Blood lymphocytes automated count (number/volume) 1.2 10*3 1.0-4.0 Blood monocytes automated count (number/volume) 0.4 10*3 0.0-1.0 Automated eosinophil count 0.0 10*3/uL 0.0-0.3 Automated blood basophil count (count/volume) 0.0 10*3/uL 0.0-0.1 Urine protein/creatinine mass ratio - 09/04/18 09:00 Urine protein measurement (mass/volume) 23 mg/dL 6-12 Urine creatinine measurement (mass/volume) 153 mg/dL 30- 125 Urine protein/creatinine mass ratio 0.15 NRG Encounters ACCT No. Visit Date/Time Discharge Status Pt. Type Provider Facility Loc./Unit Complaint [id number] 10/08/2017 13:00:00 10/08/2017 17:10:00 DIS Outpatient RANJEET LOPEZ, LOUIS Lomeli [facility] MISSED AB [id number] 05/17/2017 07:00:00 05/17/2017 13:25:00 DIS Outpatient SOLEDAD BOLAÑOS MD [facility] SDC CHRONIC ACALCULUS CHOLECYSTITIS [id number] 05/14/2017 08:57:00 05/14/2017 10:24:00 DIS Outpatient SOLEDAD BOLAÑOS MD [facility] PREOP LAPAROSCOPIC CHOLECYSTECTOMY [id number] 03/23/2017 09:54:00 03/23/2017 23:59:59 CLS Outpatient LOUIS POLLACK MD [facility] CARD RUQ PAIN [id number] 01/29/2017 07:18:00 01/29/2017 23:59:59 CLS Outpatient JOSE ROBLES MD [facility] RAD RUQ ABD PAIN [id number] 07/19/2016 08:01:00 07/20/2016 18:10:00 DIS Inpatient LOUIS POLLACK MD [facility] LDRP CONTRACTIONS, LABOR, THROMBOCYTOPENIA [id number] 02/27/2014 06:21:00 02/28/2014 20:25:00 DIS Inpatient LOUIS POLLACK MD [facility] LDRP INDUCTION [id number] 11/28/2012 13:45:00 12/10/2012 11:50:00 DIS Outpatient LOUIS POLLACK MD [facility] REHAB LOW BACK PAIN [id number] 09/06/2018 07:15:00 PEN Preadmit LOUIS POLLACK MD 40WEEKS AT INDUCTION [id number] 11/01/2012 09:49:00 Document Registration [id number] 10/22/2012 08:12:00 Document Registration [id number] 08/18/2011 07:06:00 Document Registration [id number] 06/22/2009 06:45:00 Document Registration [id number] 09/04/2018 10:23:00 Document Registration
[2018-09-04] MEDS ORDERED: D5 LR IV SOLUTION 1,000 ML IV ONE (13:26)
[2018-09-04] MEDS: D5 LR IV SOLUTION 1,000 ML IV SCH (13:40)
[2018-09-04] MEDS ORDERED: OXYTOCIN/NORMAL SALINE 500 ML IV SCH ×2 (13:50→20:42)
--- NOTE | 2018-09-04 13:59 | History & Physical ---
History and Physical Date Seen by Provider: Sep 04, 2018 Time Seen by Provider: 13:54 This patient is a 38-year-old A1 white female with an EDC of 2 819 [facility] clinic on this day program have elevated blood pressure significant weight gain and proteinuria. Her platelet count is 121,000 decreased from 150, 002 weeks ago. She had experienced thrombocytopenia with a previous as well. Her cervix was 4 cm dilated and 50 percent effaced. She is having some contractions. She was sent to labor and delivery for management and delivery. Her GBS culture done after 35 weeks gestation was negative. She denies rupture membranes or bleeding. Allergies are none Medications are Prilosec and vitamins Medical social and surgical histories are per the antepartum record. HEENT exam is normal Neck is supple no lymphadenopathy no thyromegaly Abdomen is gravid soft nontender nondistended Extremities show no clubbing or cyanosis. There is no Homans sign. Pelvic exam currently shows cervix 5 cm dilated over 70 percent effaced -1 station vertex presentation with intact membranes. Amniotomy is performed with the release of clear fluid monitor shows occasional contractions with notable uterine irritability and a normal heart rate pattern Lab work obtained in my clinic is available in the chart - that shows platelet count 121 thousand and also shows normal electrolytes and normal LDH and uric acid slightly elevated urine protein creatinine ratio is 0.15 Assessment and plan term at 39-5/7 weeks gestation in a patient who appears to be developing preeclampsia possibly towards help syndrome with the decreasing platelets. She also appears to be in labor at this point with the cervix changed since her exam was done about an hour or so earlier in my clinic. She will be managed expectantly. If blood pressures increase then we will entertain magnesium for seizure prophylaxis. We anticipate a vaginal delivery but would be prepared for any eventuality. 39 week in early labor and with developing preeclampsia Allergies and Home Medications Allergies Coded Allergies: No Known Drug Allergies (Unverified , 05/14/17) Home Medications Oxycodone HCl/Acetaminophen 1 Each Tablet, 1-2 TAB PO Q4HR PRN for PAIN- MODERATE TO SEVERE Prescribed by: LOUIS ANDERSON on 10/08/17 5080 Patient Home Medication List Home Medication List Reviewed: Yes LOUIS POLLACK MD Sep 04, 2018 13:59
[2018-09-04] MEDS ORDERED: MULT-192 PO (14:05)
[2018-09-04] MEDS: CATHETER FLUSH 10 ML SYR IV SCH ×2 (16:00→23:47)
[2018-09-04] MEDS ORDERED: LIDOCAINE/EPI 2% 1:200,00 (XYLOCAINE) 10 ML VIAL ONE (19:15)
[2018-09-04] MEDS ORDERED: IBUPROFEN 800 MG (MOTRIN) TAB PO ONE (20:42)
[2018-09-04] MEDS ORDERED: KETOROLAC 30 MG/ML VIAL ONE (20:43)
[2018-09-04] MEDS ORDERED: ONDANSETRON 4 MG/2 ML (SDV) Z0FRAN IVP PRN (20:45)
[2018-09-04] MEDS ORDERED: BENZOCAINE/MENTHOL (DERMOPLAST) 56 ML CAN TP PRN (20:45)
[2018-09-04] MEDS ORDERED: TETANUS,DIPTH,PERTUSS P/F (BOOSTRIX) 0.5 ML VIAL IM ONE (20:45)
[2018-09-04] MEDS ORDERED: MEASLES,MUMPS,RUBELLA 1 EA INJ SC ONE (20:45)
[2018-09-04] MEDS ORDERED: oxyCODONE/APAP 5/325MG (PERCOCET 5) TABLET PO PRN (20:45)
[2018-09-04] MEDS: KETOROLAC 30 MG/ML VIAL IV SCH (20:50)
--- NOTE | 2018-09-04 22:05 | NUR ---
Pt. ambulates to bathroom with standby assist without difficulty. Positive void noted.
--- NOTE | 2018-09-04 22:15 | NUR ---
Pt. ambulates to room 309 without difficulty. Accompanied by RN and infant. All personal belongings moved to new room and in pt possession. Pt. oriented to room, call light, and room service. folder given and explained. No questions or concerns voiced at this time.
[2018-09-04] MEDS: DOCUSATE SODIUM 100 MG (COLACE) CAP PO SCH (22:34)
[2018-09-05 01:34] VITALS: BP 99/56
[2018-09-05] MEDS: KETOROLAC 30 MG/ML VIAL IV SCH (03:12)
[2018-09-05 05:00] VITALS: BP 125/84
[2018-09-05] MEDS: CATHETER FLUSH 10 ML SYR IV SCH (05:41)
[2018-09-05] MEDS: D5 LR IV SOLUTION 1,000 ML IV SCH (05:42)
--- NOTE | 2018-09-05 06:00 | OPERATIVE REPORT ---
DATE OF SERVICE: 09/04/2018 DELIVERY NOTE The patient delivered by term spontaneous vaginal delivery a viable male with Apgars of 8 and 9 at 1 and 5 minutes respectively, weight 7 lbs. 12 oz. Cord pH is pending and time of 2017. The infant delivered over an intact perineum under no analgesia. The infant was bulb suctioned on delivery of the head and again on completion of delivery. The umbilical cord was clamped when relatively pulseless. The father cut the cord, and the baby was passed to mom's abdomen. Baby was quickly pink, moved all extremities, heart rate was over 100 beats per minute, had excellent tone and reflexes and a lusty cry. The cervix, vagina, rectum perineum were examined and found intact. There was a very minimal abrasion of the left labia majora. It was perfectly hemostatic and required no repair. Sponge and needle counts were correct on completion of delivery. The patient tolerated the delivery well and remained in the LDR for recovery. The baby remained with the mom. Job ID: [id number] DocumentID: [id number] Dictated Date: 09/04/2018 20:30:34 Basket Patcher Date: 09/05/2018 05:59:04 Dictated By: LOUIS POLLACK MD MTDD
[2018-09-05 08:00] VITALS: BP 125/80
--- NOTE | 2018-09-05 08:09 | Progress Note-Standard ---
Standard Progress Note Progress Notes/Assess & Plan Date Seen by a Provider: Sep 05, 2018 Time Seen by a Provider: 08:09 Progress/Assessment & Plan This patient is without complaint. She is ambulating, voiding, tolerating oral intake well has good pain control. Vital Signs 09/05/18 09/05/18 01:34 05:00 Temp 99.6 Pulse 77 Resp 16 B/P (MAP) 125/84 (98) Pulse Ox 98 O2 Delivery Room Air Vital signs are stable. Patient is afebrile. Fundus is firm below the umbilicus and nontender. Extremities show no clubbing cyanosis. There is no Homans sign. There is some pretibial pitting edema that is normal. Assessment and plan day number 1 status post term spontaneous vaginal delivery at 39-5/7 weeks gestation. Patient will have routine convalescence care will allow discharge home today or tomorrow as requested by patient Final Diagnosis 39 week spontaneous vaginal delivery LOUIS POLLACK MD Sep 05, 2018 08:09
[2018-09-05] MEDS ORDERED: DOCU100C37 PO (08:11)
[2018-09-05] MEDS ORDERED: IBUP-1780 PO (08:11)
[2018-09-05] MEDS ORDERED: OXYC1TAB87 PO (08:11)
--- NOTE | 2018-09-05 08:14 | Discharge Instructions ---
Discharge Instructions Discharge Medications New, Converted or Re-Newed RX: RX on Chart Patient Instructions Patient Instructions: As directed Return to The Hospital For: As directed Activity & Diet Discharge Diet: No Restrictions Activity as Tolerated: No Orders-Post D/C & Referrals Follow Up Appt: Call to make follow up appt. for patient in 4 weeks. Activity Per routine post vaginal delivery instructions. Please call in RX to patient pharmacy. Diet as tolerated Patient may shower or tub bathe as desired. LOUIS POLLACK MD Sep 05, 2018 08:14
[2018-09-05] MEDS: DOCUSATE SODIUM 100 MG (COLACE) CAP PO SCH ×2 (09:00→20:58)
[2018-09-05] MEDS: IBUPROFEN 800 MG (MOTRIN) TAB PO SCH ×3 (09:00→20:59)
--- NOTE | 2018-09-05 09:00 | NUR ---
THIS RN INTRODUCES SELF TO PT AND FAMILY AT THIS TIME. PHYSICAL ASSESSMENT COMPLETE. VSS. PT REQUESTS MOTRIN, WHICH RN HAD FOR ROUTINE ADMIN ALONG WITH COLACE. WATER REFILLED. ASKED WHO IS ON FOR PEDS. THIS RN LOOKS UP AND REPORTS BACK TO FAMILY. FAMILY IS WANTING INFANT CIRCUMCISED. DR MCKEON IS ON AND WILL ROUND ON SHORTLY. DENIES NEEDS AT THIS TIME. CALL LIGHT WITHIN REACH.
[2018-09-05 12:00] VITALS: BP 117/68
[2018-09-05 16:00] VITALS: BP 128/73
[2018-09-05] MEDS ORDERED: IBUPROFEN 800 MG (MOTRIN) TAB PO SCH (20:45)
[2018-09-05 20:59] VITALS: BP 119/81
--- NOTE | 2018-09-05 22:00 | NUR ---
D/C instructions given & explained, pt. verbalized understanding & signed, copy of D/C instructions to pt. Pt. declined calling in ibuprofen & colace Rx to [facility], stating she still has some from last delivery. Percocet Rx given to pt.
--- NOTE | 2018-09-05 22:25 | NUR ---
Pt. left [facility] ambulatory per request, D/C instructions & pt's belongings w/pt, escorted by & Chris Wise RN. Pt. to home via private vehicle. Pt. & infant properly secured in vehicle w/safety belts.
--- NOTE | 2018-09-09 12:26 | Physician Query-Final Dx ---
STEPH MARIE 09/09/18 1226: Final Diagnosis Give Final Diagnosis Please give Final Diagnosis LOUIS POLLACK MD 09/10/18 1234: Final Diagnosis Give Final Diagnosis Term spontaneous vaginal delivery at 38 weeks gestation STEPH MARIE Sep 09, 2018 12:26 LOUIS POLLACK MD Sep 10, 2018 12:34
== END 2018-09-05 22:25 | disposition home or self-care (01) | DRG 807 ==
LOC: LDRP 12:58
PROVIDERS: ADMIT Obstetrics & Gynecology; ATTEND Obstetrics & Gynecology
PROC: 10E0XZZ Delivery of Products of Conception, External Approach (ICD-10-PCS; principal; 2018-09-04)
DX: O80 Encounter for full-term uncomplicated delivery (principal); Z3A.39 39 weeks gestation of pregnancy; Z37.0 Single live birth
CPT/HCPCS: 86850; 86900; 86901

== ENCOUNTER → 2018-09-04 | Outpatient (CLI) ==
[~2018-09-04] MED LIST changes: +MULT-192 PO; +OXYC1TAB87 PO
== END ==
LOC: LABNPT 09:54 → MERGE 09:54
PROVIDERS: ATTEND Obstetrics & Gynecology
DX: O14.03 Mild to moderate pre-eclampsia, third trimester (principal)
CPT/HCPCS: 82570; 84156

== ENCOUNTER 2020-07-26 07:00 | Inpatient (IN) | payer OTHER ==
[~2020-07-26] VITALS: Ht 165.1 cm; Wt 87.6 kg
[2020-07-26] VITALS (43 sets, daily range): BP systolic 109–133; BP diastolic 62–88
[~2020-07-26 07:00] MED LIST changes: +MULT-192 PO; -OXYC-465 PO; +OXYC-556 PO; +OXYC1TAB87 PO
--- NOTE | 2020-07-26 07:28 | NUR ---
WILLIAM NUÑEZ presented to unit via ambulation from ED, accompanied by , for scheduled IOL. Pt. weighed, gowned, voided, and to bed. EFHM and TOCO applied, VS taken. Pt. oriented to bed controls, call light, TV, heat, and A/C controls.
[2020-07-26] MEDS ORDERED: D5 LR IV SOLUTION 1,000 ML IV SCH (07:45)
[2020-07-26] MEDS ORDERED: OXYTOCIN PRE-MIX DRIP 500 ML IV SCH ×2 (07:45→17:15)
[2020-07-26] MEDS ORDERED: DOCU100C37 PO (07:49)
[2020-07-26] MEDS ORDERED: IBUP-1780 PO (07:49)
[2020-07-26] MEDS ORDERED: OXYC1TAB87 PO (07:49)
--- NOTE | 2020-07-26 07:50 | Discharge Inst-Surgical ---
Discharge Inst-Surgical Depart Medication/Instructions New, Converted or Re-Newed RX: RX on Chart Consults/Follow Up Patient Instructions: DIRECTED Orders & Referrals Follow Up Appt: Call to make follow up appt. for patient in 4 weeks. Activity Per routine post vaginal delivery instructions. Please call in RX to patient pharmacy. Diet as tolerated Patient may shower or tub bathe as desired. Activity Activity as Tolerated: No Diet Discharge Diet: No Restrictions LOUIS POLLACK MD Jul 26, 2020 07:50
--- NOTE | 2020-07-26 07:52 | History & Physical ---
History and Physical Date Seen by Provider: Jul 26, 2020 Time Seen by Provider: 07:50 This patient is a 40-year-old multigravid white female admitted at 39 weeks gestation for induction of labor. Her has been uncomplicated. Her GBS culture after 35 weeks gestation was negative. Patient denies rupture membranes or bleeding. Allergies are none Medications are vitamins Medical social surgical history is all per the antepartum record HEENT exam is normal Neck is supple no lymphadenopathy no thyromegaly Abdomen is gravid soft nontender nondistended Extremities show no clubbing or cyanosis. There is no Homans' sign. Pelvic exam shows a cervix 3 cm dilated 60 to 80% effaced 0 station vertex presentation soft and anterior Assessment and plan term at 39 weeks gestation and grand multipara admitted now for induction of labor past 39 weeks gestation. Anticipation is for vaginal delivery. 39 weeks gestation admitted for induction of labor Allergies and Home Medications Allergies Coded Allergies: No Known Drug Allergies (Unverified , 05/14/17) Home Medications Docusate Sodium 100 Mg Capsule, 100 MG PO BID Prescribed by: LOUIS ANDERSON on 07/26/20 0749 Ibuprofen 800 Mg Tablet, 800 MG PO Q6H Prescribed by: LOUIS ANDERSON on 07/26/20 0749 Multivitamin 1 Each Tab.chew, 1 EACH PO DAILY, (Reported) Oxycodone HCl/Acetaminophen 1 Each Tablet, 1 TAB PO Q4H PRN for PAIN-MODERATE Prescribed by: LOUIS ANDERSON on 07/26/20 0749 Patient Home Medication List Home Medication List Reviewed: Yes LOUIS POLLACK MD Jul 26, 2020 07:52
--- NOTE | 2020-07-26 08:12 | NUR ---
lab here for admission labs.
[2020-07-26] MEDS: D5 LR IV SOLUTION 1,000 ML IV SCH ×2 (08:24→15:00)
[2020-07-26 08:28] LABS: BASOPHILS % (AUTO) 0 % (0-10); MEAN CORPUSCULAR HEMOGLOBIN 30 pg (25-34)
[2020-07-26 08:30] LABS: EOSINOPHILS # (AUTO) 0.1 10^3/uL (0.0-0.3); EOSINOPHILS % (AUTO) 1 % (0-10); HEMATOCRIT 29 % (35-52); HEMOGLOBIN 9.6 g/dL (11.5-16.0); LYMPHOCYTES # (AUTO) 1.2 10^3/uL (1.0-4.0); LYMPHOCYTES % (AUTO) 17 % (12-44); MEAN CORPUSCULAR HGB CONC 33 g/dL (32-36); MEAN CORPUSCULAR VOLUME 89 fL (80-99); MEAN PLATELET VOLUME 12.9 fL (9.0-12.2); MONOCYTES # (AUTO) 0.6 10^3/uL (0.0-1.0); MONOCYTES % (AUTO) 8 % (0-12); NEUTROPHILS # (AUTO) 5.1 10^3/uL (1.8-7.8); NEUTROPHILS % (AUTO) 73 % (42-75); PLATELET COUNT 151 10^3/uL (130-400)
--- NOTE | 2020-07-26 09:25 | NUR ---
COVID sample obtained, labeled and sent to lab.
--- NOTE | 2020-07-26 11:04 | NUR ---
MARIA A Mcclain notified of pt's request for epidural placement.
[2020-07-26] MEDS ORDERED: fentaNYL 2 mcg/ml BUPIVA 0.125 100 ML ONE (11:09)
[2020-07-26] MEDS ORDERED: LACTATED RINGERS 1,000 ML IV ONE ×3 (11:09→13:15)
[2020-07-26] MEDS ORDERED: fentaNYL INJECTION 100 MCG/2 ML AMP ONE (11:16)
--- NOTE | 2020-07-26 11:24 | NUR ---
MARIA A Mcclain here for epidural placement. Procedure explained, consent reviewed and signed by anesthesia. Questions answered to patient's satisfaction. Time out taken to verify correct patient/procedure. 1126-Patient up to side of bed, assisted into sitting position. Betadine prep done x3 and sterile drape applied. 1132- Local done, see anesthesia record. 1139-Test dose given, see anesthesia record for drug and dosage. Epidural catheter secured in place. Epidural placement complete. 1146- Assisted back into bed, monitors adjusted. Epidural dosed, see anesthesia record. 1151- Epidural of Sufenta/Fentanyl @10cc/hr stated per pump. Patient tolerated procedure well.
[2020-07-26] MEDS ORDERED: BUPIVACAINE 0.25% 30 ML (SENSORCAINE) VIAL ONE (12:33)
[2020-07-26] MEDS ORDERED: LIDOCAINE PF 2% 5 ML (XYLOCAINE) VIAL ONE (12:33)
[2020-07-26] MEDS ORDERED: NALOXONE 0.4 MG/ML 1 ML (NARCAN) VIAL IV PRN (13:15)
[2020-07-26] MEDS ORDERED: fentaNYL INJECTION 100 MCG/2 ML AMP INJ ONE (13:15)
[2020-07-26] MEDS ORDERED: ONDANSETRON 4 MG/2 ML (SDV) Z0FRAN IV PRN (13:15)
[2020-07-26] MEDS ORDERED: EPIDURAL (fentaNYL 2 MCG/ML BUPIVA 0.125%)100 ML BAG EPI PRN (13:15)
[2020-07-26] MEDS ORDERED: CATHETER FLUSH 10 ML SYR IV SCH (14:00)
[2020-07-26] MEDS ORDERED: LIDOCAINE/EPI 2% 1:200,00 (XYLOCAINE) 10 ML VIAL ONE (16:28)
[2020-07-26] MEDS ORDERED: KETOROLAC 30 MG/ML VIAL IVP SCH (17:15)
[2020-07-26] MEDS ORDERED: MEASLES,MUMPS,RUBELLA 1 EA INJ SC ONE (17:15)
[2020-07-26] MEDS ORDERED: TETANUS,DIPTH,PERTUSS P/F (BOOSTRIX) 0.5 ML VIAL IM ONE (17:15)
[2020-07-26] MEDS ORDERED: BENZOCAINE/MENTHOL (DERMOPLAST) 60 ML CAN TP PRN (17:15)
[2020-07-26] MEDS ORDERED: ONDANSETRON 4 MG/2 ML (SDV) Z0FRAN IVP PRN (17:15)
[2020-07-26] MEDS ORDERED: oxyCODONE/APAP 5/325MG (PERCOCET 5) TABLET PO PRN (17:15)
[2020-07-26] MEDS ORDERED: KETOROLAC 30 MG/ML VIAL ONE (17:17)
--- NOTE | 2020-07-26 18:25 | NUR ---
FFu/0. lt rubra noted. able to move Rt. leg without difficulties. Lt. leg remains heavy. and @ side. appropriate bonding noted.
--- NOTE | 2020-07-26 20:15 | NUR ---
Pt up to bathroom to void. able to void without difficulty.
--- NOTE | 2020-07-26 20:30 | NUR ---
Transferred to room 309 per WC. accompanied by . Oriented to the room.
--- NOTE | 2020-07-26 23:00 | OPERATIVE REPORT ---
DATE OF SERVICE: 07/26/2020 DELIVERY NOTE The patient delivered by term spontaneous vaginal delivery a viable male with Apgars of 8 and 9 at 1 and 5 minutes respectively, weight of 8 pounds 4 ounces, time of 1651 and a cord blood pH of 7.32. The infant was delivered over an intact perineum under epidural analgesia. The infant was bulb suctioned on delivery of the head and again on completion of delivery. The umbilical cord when pulseless was doubly clamped, the father cut the cord, the baby was passed to mom's abdomen. The placenta delivered spontaneously Gonzalez fairly promptly after delivery of the infant. The placenta was sent to pathology for permanent section. It was a normal-appearing placenta with 3-vessel cord. The cervix, vagina, rectum, and perineum were examined and found intact. Sponge and needle counts were correct on completion of delivery and the post-delivery inspection. Estimated blood loss was around 100 mL. The patient tolerated the delivery well and remained in the LDR for recovery. The baby remained with the mom. Job ID: [id number] DocumentID: [id number] Dictated Date: 07/26/2020 19:57:01 Applications Programmer Analyst Date: 07/26/2020 23:00:01 Dictated By: LOUIS POLLACK MD MTDD
[2020-07-26] MEDS ORDERED: IBUPROFEN 800 MG (MOTRIN) TAB PO ONE (23:16)
[2020-07-26] MEDS: IBUPROFEN 800 MG (MOTRIN) TAB PO SCH (23:19)
[2020-07-26] MEDS: DOCUSATE SODIUM 100 MG (COLACE) CAP PO SCH (23:19)
[2020-07-27] VITALS: BP 129/65
[2020-07-27] MEDS ORDERED: IBUPROFEN 800 MG (MOTRIN) TAB PO ONE ×2 (05:26→11:57)
--- NOTE | 2020-07-27 08:06 | Progress Note ---
Standard Progress Note Progress Notes/Assess & Plan Date Seen by a Provider: Jul 27, 2020 Time Seen by a Provider: 08:05 Progress/Assessment & Plan This patient is without complaint. She is ambulating, voiding, tolerating oral intake well has good pain control. Vital Signs 07/27/20 00:00 Temp 36.4 Pulse 71 Resp 18 B/P (MAP) 129/65 (86) Pulse Ox 97 O2 Delivery Room Air Vital signs are stable. Patient is afebrile. Fundus is firm below the umbilicus and nontender. Extremities show no clubbing or cyanosis. There is no Homans sign. Assessment and plan day number 1 status post term spontaneous vaginal delivery at 39 weeks gestation. Patient doing well and will have routine convalescence care Final Diagnosis 39 week spontaneous vaginal delivery LOUIS POLLACK MD Jul 27, 2020 08:06
[2020-07-27 08:35] VITALS: BP 114/67
[2020-07-27 12:01] VITALS: BP 123/59
[2020-07-27] MEDS: IBUPROFEN 800 MG (MOTRIN) TAB PO SCH ×2 (12:03→18:22)
[2020-07-27] MEDS: DOCUSATE SODIUM 100 MG (COLACE) CAP PO SCH ×2 (12:04→20:19)
--- NOTE | 2020-07-27 14:42 | Anesthesia-Regional Post-Op ---
Regional Patient Condition Mental Status: Alert, Oriented x3 Circulation: Same as Pre-Op Headache: Absent Sensation: Full Recovery Motor Block: Absent Post Op Complications Complications None Follow Up Care/Instructions Patient Instructions None needed. Anesthesia/Patient Condition Patient is doing well, no complaints, stable vital signs, no apparent adverse anesthesia problems. RAFA AVILEZ DO Jul 27, 2020 14:42
[2020-07-27 16:38] VITALS: BP 123/69
[2020-07-27 20:19] VITALS: BP 131/74
[2020-07-28] MEDS: IBUPROFEN 800 MG (MOTRIN) TAB PO SCH ×2 (01:09→08:22)
[2020-07-28 01:15] VITALS: BP 119/68
--- NOTE | 2020-07-28 07:18 | Progress Note ---
Standard Progress Note Progress Notes/Assess & Plan Date Seen by a Provider: Jul 28, 2020 Time Seen by a Provider: 07:17 Progress/Assessment & Plan This patient is without complaint. She is ambulating, voiding, tolerating oral intake well has good pain control. Vital Signs 07/27/20 00:00 Temp 36.4 Pulse 71 Resp 18 B/P (MAP) 129/65 (86) Pulse Ox 97 O2 Delivery Room Air Vital signs are stable. Patient is afebrile. Fundus is firm below the umbilicus and nontender. Extremities show no clubbing or cyanosis. There is no Homans sign. Assessment and plan day number 1 status post term spontaneous vaginal delivery at 39 weeks gestation. Patient doing well and will have routine convalescence care July 28, 2020 Patient is without complaint. She is ambulating, voiding, tolerating oral intake well and has good pain control. Patient is requesting discharge home. Vital Signs Date Time Temp Pulse Resp B/P (MAP) Pulse Ox O2 Delivery O2 Flow Rate FiO2 07/28/20 01:15 36.4 77 18 119/68 (85) 98 Room Air 07/27/20 20:19 36.5 90 18 131/74 (93) 98 Room Air 07/27/20 16:38 36.6 85 18 123/69 (87) 98 Room Air 07/27/20 12:01 36.9 87 18 123/59 (80) 98 Room Air 07/27/20 08:35 36.8 95 18 114/67 (83) 98 Room Air Vital signs are stable. Patient is afebrile. Fundus is firm below the umbilicus and nontender. Extremities show no clubbing or cyanosis. There is no Homans' sign. Assessment and plan day #2 doing well. Plan is for discharge home with follow-up in clinic Final Diagnosis 39-week spontaneous vaginal delivery LOUIS POLLACK MD Jul 28, 2020 07:18
--- NOTE | 2020-07-28 07:59 | NUR ---
here. dismissal orders received.
[2020-07-28 08:20] VITALS: BP 121/72
--- NOTE | 2020-07-28 08:20 | NUR ---
initial shift assessment completed, see interventions for further. POC reviewed- states understanding.
[2020-07-28] MEDS: DOCUSATE SODIUM 100 MG (COLACE) CAP PO SCH (08:21)
--- NOTE | 2020-07-28 10:51 | NUR ---
Motrin and Colace Rx called into [facility] per pt's request.
--- NOTE | 2020-07-28 10:59 | NUR ---
dismissal instructions given, verbalizes understanding. reviewed follow up appointment and Rx's. signature page signed, placed on chart.
--- NOTE | 2020-07-28 11:03 | NUR ---
Pt is Oriental [employer]. Sprue Cutting Press Operator provided prayer and Communion.
--- NOTE | 2020-07-28 12:10 | NUR ---
pt ambulated to private vehicle with KERI Wallace and @ side. secured in rear facing car seat. pt stable with no sx's of distress noted.
== END 2020-07-28 12:10 | disposition home or self-care (01) | DRG 807 ==
LOC: LDRP 07:23
PROVIDERS: ADMIT Obstetrics & Gynecology; ATTEND Obstetrics & Gynecology
PROC: 10E0XZZ Delivery of Products of Conception, External Approach (ICD-10-PCS; principal; 2020-07-26)
DX: O80 Encounter for full-term uncomplicated delivery (principal); Z37.0 Single live birth; Z3A.39 39 weeks gestation of pregnancy; Z20.828 Contact with and (suspected) exposure to other viral communicable diseases
CPT/HCPCS: 36415; 85025; 86780; 86850; 86900; 86901; 87635

== ENCOUNTER 2022-06-08 20:40 | Inpatient (IN) | payer BC ==
[~2022-06-08] VITALS: Ht 162.6 cm; Wt 79.1 kg
[2022-06-08 21:00] VITALS: BP 146/83
[2022-06-08 21:06] LABS: BILIRUBIN,URINE NEGATIVE (NEGATIVE); CLARITY,URINE TURBID; COLOR,URINE YELLOW; GLUCOSE, URINE (UA) NEGATIVE (NEGATIVE); KETONES,URINE NEGATIVE (NEGATIVE); LEUKOCYTE ESTERASE ,URINE 1+ (NEGATIVE); NITRITE,URINE POSITIVE (NEGATIVE); PROTEIN,URINE 3+ (NEGATIVE)
[2022-06-08 21:27] LABS: BACTERIA,URINE MODERATE /HPF; RBC,URINE 25-50 /HPF; WBC,URINE 25-50 /HPF
[2022-06-08] MEDS: D5 LR IV SOLUTION 1,000 ML IV SCH (21:30)
[2022-06-08 21:45] VITALS: BP 118/66
[2022-06-08 21:49] LABS: BASOPHILS # (AUTO) 0.1 10^3/uL (0.0-0.1); BASOPHILS % (AUTO) 1 % (0-10); EOSINOPHILS # (AUTO) 0.1 10^3/uL (0.0-0.3); EOSINOPHILS % (AUTO) 1 % (0-10); HEMATOCRIT 32 % (35-52); HEMOGLOBIN 11.1 g/dL (11.5-16.0); LYMPHOCYTES # (AUTO) 1.2 10^3/uL (1.0-4.0); LYMPHOCYTES % (AUTO) 12 % (12-44); MEAN CORPUSCULAR HEMOGLOBIN 31 pg (25-34); MEAN CORPUSCULAR HGB CONC 34 g/dL (32-36); MEAN CORPUSCULAR VOLUME 92 fL (80-99); MEAN PLATELET VOLUME 11.8 fL (9.0-12.2); MONOCYTES # (AUTO) 0.5 10^3/uL (0.0-1.0); MONOCYTES % (AUTO) 5 % (0-12); NEUTROPHILS % (AUTO) 81 % (42-75); PLATELET COUNT 180 10^3/uL (130-400)
[2022-06-08 22:09] LABS: BILIRUBIN,URINE NEGATIVE (NEGATIVE); CLARITY,URINE CLEAR; COLOR,URINE YELLOW; GLUCOSE, URINE (UA) NEGATIVE (NEGATIVE); KETONES,URINE NEGATIVE (NEGATIVE); LEUKOCYTE ESTERASE ,URINE NEGATIVE (NEGATIVE); NITRITE,URINE NEGATIVE (NEGATIVE); PH,URINE 6.5 (5-9); PROTEIN,URINE NEGATIVE (NEGATIVE)
[2022-06-08 22:19] LABS: BACTERIA,URINE TRACE /HPF
[2022-06-08 22:20] LABS: AMORPHOUS SEDIMENT,UR FEW AMOR PHOSPHATE /LPF
--- NOTE | 2022-06-08 23:03 | History & Physical ---
History and Physical Date Seen by Provider: Jun 08, 2022 Time Seen by Provider: 22:00 This patient is a para 9 A1 female currently at 21-4/7 weeks gestation. She presented this evening with complaint of spontaneous rupture membranes at about 1800 at home. She reports a large gush of fluid soaking her clothes. She continues to have gushes of fluid for a period of time after the initial gush eventually she contacted me and I instructed her to go to labor and delivery for evaluation. Patient denies bleeding. She has no bowel or bladder complaints. She denies contractions but does report feeling fullness and pressure in the pelvis Initial evaluation by the labor and delivery nurses showed a nitrazine positive with gross rupture membranes. heart tones were confirmed. Allergies are none Medications are vitamins Medical social and surgical histories are per the antepartum record HEENT exam is normal Neck is supple with no lymphadenopathy no thyromegaly Abdomen is gravid soft nontender nondistended Extremities show no clubbing or cyanosis. There is no Homans' sign. Sterile speculum exam shows a closed bulky multiparous cervix. There is pooling in the vaginal vault. Bedside ultrasound demonstrates a fetus in the footling breech presentation. There is scant amniotic fluid noted on transabdominal scan. heart rate is in the 140s but also variable Laboratory Tests Test 06/08/22 20:50 06/08/22 20:55 06/08/22 21:30 06/08/22 21:54 Range/Units Urine Color YELLOW YELLOW Urine Clarity TURBID CLEAR Urine pH 7.0 6.5 5-9 Urine Specific [place] 1.020 1.015 L 1.016-1.022 Urine Protein 3+ H NEGATIVE NEGATIVE Urine Glucose (UA) NEGATIVE NEGATIVE NEGATIVE Urine Ketones NEGATIVE NEGATIVE NEGATIVE Urine Nitrite POSITIVE H NEGATIVE NEGATIVE Urine Bilirubin NEGATIVE NEGATIVE NEGATIVE Urine Urobilinogen 0.2 1.0 < = 1.0 MG/DL Urine Leukocyte Esterase 1+ H NEGATIVE NEGATIVE Urine RBC (Auto) 3+ H NEGATIVE NEGATIVE Urine RBC 25-50 H NONE /HPF Urine WBC 25-50 H NONE /HPF Urine Squamous Epithelial Cells 5-10 5-10 /HPF Urine Crystals NONE PRESENT H /LPF Urine Bacteria MODERATE H TRACE /HPF Urine Casts NONE NONE /LPF Urine Mucus NEGATIVE NEGATIVE /LPF Urine Culture Indicated YES NO Amniotic Fluid Ferning Test NEGATIVE NEGATIVE White Blood Count 10.0 4.3-11.0 10^3/uL Red Blood Count 3.53 L 3.80-5.11 10^6/uL Hemoglobin 11.1 L 11.5-16.0 g/dL Hematocrit 32 L 35-52 % Mean Corpuscular Volume 92 80-99 fL Mean Corpuscular Hemoglobin 31 25-34 pg Mean Corpuscular Hemoglobin Concent 34 32-36 g/dL Red Cell Distribution Width 13.0 10.0-14.5 % Platelet Count 180 130-400 10^3/uL Mean Platelet Volume 11.8 9.0-12.2 fL Immature Granulocyte % (Auto) 1 % Neutrophils (%) (Auto) 81 H 42-75 % Lymphocytes (%) (Auto) 12 12-44 % Monocytes (%) (Auto) 5 0-12 % Eosinophils (%) (Auto) 1 0-10 % Basophils (%) (Auto) 1 0-10 % Neutrophils # (Auto) 8.0 H 1.8-7.8 10^3/uL Lymphocytes # (Auto) 1.2 1.0-4.0 10^3/uL Monocytes # (Auto) 0.5 0.0-1.0 10^3/uL Eosinophils # (Auto) 0.1 0.0-0.3 10^3/uL Basophils # (Auto) 0.1 0.0-0.1 10^3/uL Immature Granulocyte # (Auto) 0.1 0.0-0.1 10^3/uL Urine Amorphous Sediment FEW ROSALINE PHOSPHATE H /LPF Assessment and plan 21-4/7 weeks gestation in an elderly grand multipara. On confirmation of rupture membrane patient was placed in Trendelenburg. Humphries catheter was placed to dependent drainage. IV access was obtained and started. We will initiate antibiotic Coverage with Keflex 1 g every 6 hours.Patient will be given a azithromycin 500 mg daily. I have discussed this patient with Dr. Tip Hoffman the OB on-call at [facility] in [place]. He apprise is that they do not have a perinatologist available onsite and their policy now is to recommend transfer of patients with pre-viability pregnancies to a tertiary care center such as [facility] in [place] or to a tertiary care center in [place] or other location. He indicated that he was not at liberty to except this patient in transfer with their current hospital policy.Have had a lengthy discussion with this patient and her partner regarding her history, her presentation, the likelihood of progression to labor and delivery versus likelihood of progression to an intrauterine infection. Patient is aware that transfer to [facility] for the availability of their NICU at this point is not an option.Patient understands that at sub 23 weeks - viability is exceedingly unlikely. She further understands that if her status can be maintained without labor and without infection until she passes 24 weeks or later the likelihood of survival would be much greater. Plan at this point is for admission with complete bed rest and slight Trendelenburg with Humphries catheter to dependent drainage. We will initiate antibiotics as noted above. Should she obtain 23 weeks we would consider going ahead with IM betamethasone. I will review this patient with a perinatologist tomorrow as there is nothing warranting urgent management or urgent transfer of this patient at this moment Patient is agreeable to this plan 21-4/7 weeks gestation with P PROM Allergies and Home Medications Allergies Coded Allergies: No Known Drug Allergies (Unverified , 06/08/22) Patient Home Medication List Home Medication List Reviewed: Yes Multivitamin (Gummi Bear Multivitamin) 1 Each Tab.chew, 1 EACH PO DAILY, (Reported) Entered as Reported by: LUIS CARLOS JACOB on 09/04/18 1405 Last Action: Last Taken Edited Discontinued Medications Docusate Sodium (Docusate Sodium) 100 Mg Capsule, 100 MG PO BID Discontinued Reason: No Longer Taking Prescribed by: LOUIS ANDERSON on 07/26/20748 Last Action: Discontinued Ibuprofen (Ibuprofen) 800 Mg Tablet, 800 MG PO Q6H Discontinued Reason: No Longer Taking Prescribed by: LOUIS ANDERSON on 07/26/20748 Last Action: Discontinued Oxycodone HCl/Acetaminophen (Percocet 5-325 mg Tablet) 1 Each Tablet, 1 TAB PO Q4H PRN for PAIN-MODERATE Discontinued Reason: No Longer Taking Prescribed by: LOUIS ANDERSON on 07/26/20748 Last Action: Discontinued LOUIS POLLACK MD Jun 08, 2022 23:03
[2022-06-09] MEDS ORDERED: AZITHROMYCIN 250 MG TAB (ZITHROMAX) PO SCH
[2022-06-09] MEDS: ceFAZolin INJECTION 1,000 MG in NS (IVPB) 50 ML IV SCH ×2 (00:17→06:32)
[2022-06-09 00:33] VITALS: BP 100/56
[2022-06-09] MEDS ORDERED: ACETAMINOPHEN 500 MG TAB (TYLENOL) PO PRN (00:45)
[2022-06-09] MEDS ORDERED: ONDANSETRON 4 MG/2 ML (SDV) Z0FRAN IVP PRN (00:45)
[2022-06-09 04:42] VITALS: BP 114/65
[2022-06-09] MEDS: D5 LR IV SOLUTION 1,000 ML IV SCH (04:44)
--- NOTE | 2022-06-09 07:30 | Progress Note ---
Standard Progress Note Progress Notes/Assess & Plan Date Seen by a Provider: Jun 09, 2022 Time Seen by a Provider: 07:28 Progress/Assessment & Plan This patient is without complaint. She denies contractions abdominal or pelvic pain. She does report continual leakage of fluid per the vagina. Vital Signs Date Time Temp Pulse Resp B/P (MAP) Pulse Ox O2 Delivery O2 Flow Rate FiO2 06/09/22 04:42 37.1 80 16 114/65 (81) 99 Room Air 06/09/22 00:33 36.9 80 16 100/56 (71) 99 Room Air 06/08/22 21:45 90 16 118/66 (83) 99 Room Air 06/08/22 21:00 37.0 93 16 146/83 Room Air I & O 06/09/22 07:00 Intake Total 1350 ml Output Total 900 ml Balance 450 ml Labs are stable. Patient is afebrile. The abdomen is benign The fundus is palpable just below the umbilicus and none tender. Extremities show no clubbing cyanosis Assessment and plan Patient is now 21-5/7 weeks gestation with PP ROM We will continue Keflex 1 g every 6 hours and azithromycin 500 mg daily Plan is to review this patient's status with high school learning support teacher for management recommendations and/or transfer Recommendation Patient understands the high likelihood of spontaneous labor and delivery of a Previable fetus We will continue observation at this point LOUIS POLLACK MD Jun 09, 2022 07:30
[2022-06-09 08:15] VITALS: BP 101/55
--- NOTE | 2022-06-09 08:23 | Diagnostic Imaging Report ---
INDICATION: rupture of membranes. TECHNIQUE: Multiple real-time grayscale images were obtained over the gravid uterus. COMPARISON: None FINDINGS: Cervix measures 6.9 cm in length. The fetus in cephalic presentation. Placenta is posterior position and the tip of the cervix is 6.5 cm from the internal cervical os. There is no previa. There is approximately 1.3 cm of funneling of the upper cervix. The AVELINO is low normal at 5.5 cm Following anatomy is visualized and normal: Four-chamber heart, stomach, kidneys, urinary bladder, three-vessel cord, umbilical cord insertion, diaphragm, cerebral ventricles, posterior fossa, spine, left ventricular outflow tract, right ventricular outflow tract. Biometrical measurements are as follows: Biparietal 4.73 cm, age 20 weeks 3 days. Head circumference 19.42 cm, age 21 weeks 5 days. Abdominal circumference 16.54 cm, age 21 weeks 5 days. Femur length 3.67 cm, age 21 weeks 5 days. Sonographic estimate age: 21 weeks 3 days. Sonographic estimated date of delivery: 10/17/2022. Estimated Weight: 434 gm (+/- 64 gm). LMP percentile: 36%. heart rate: 136 beats per minute. number: 1 of 1. IMPRESSION: 1. Single live intrauterine has normal anatomy survey. 2. Borderline oligohydramnios, with a AVELINO of 5.5 cm. 3. Cervix measures 6.9 cm in length, with a possible 1.3 cm region of funneling at its cranial aspect. Dictated by: Dictated on workstation # [id number]
[2022-06-09] MEDS ORDERED: AMPICILLIN FOR IV SCH (09:00)
[2022-06-09] MEDS ORDERED: NS IV SCH (09:00)
[2022-06-09] MEDS ORDERED: NS IV ONE (09:30)
[2022-06-09] MEDS ORDERED: AZITHROMYCIN IV ONE (09:30)
[2022-06-09] MEDS ORDERED: AZITHROMYCIN INJECTION 500 MG/5 ML VIAL ONE (09:39)
--- NOTE | 2022-06-09 10:36 | Discharge Summary ---
Discharge Summary 21-week P PROM This patient is a 42-year-old 11 para 9 A1 female who was admitted last evening at 21-4/7 weeks gestation was P PROM. She was monitored through the night and Trendelenburg position with IV fluids and prophylactic antibiotics. Patient has been stable she has not had contractions she does continue to leak fluid. She does feel baby moving. Ultrasound on admission last night showed a fetus with double footling breech. Ultrasound by radiology this morning showed a fetus that was vertex. Repeat ultrasound bedside right now shows a fetus that is back down transverse lie with head left. This patient's case and status has been reviewed with paper pattern inspector at [facility]. Dr. Whittaker has recommended transfer of this patient to her care at [facility] and that is be ing arranged. Principal diagnosis this hospitalization is 21+ week P PROM Secondary diagnoses areAdvanced maternal age Variable presentationInitially breech then vertex currently back down transverse with head left Plan is for transfer to the care of At [facility] LOUIS POLLACK MD Jun 09, 2022 10:36
[2022-06-09 12:00] VITALS: BP 132/77
[2022-06-09 12:47] VITALS: BP 132/77
== END 2022-06-09 12:13 | disposition short-term general hospital (02) | DRG 833 ==
LOC: LDRP 20:40 → WSo 20:40 → LDRP 23:08 → WSo 23:08
PROVIDERS: ADMIT Obstetrics & Gynecology; ATTEND Obstetrics & Gynecology
DX: O42.912 Preterm premature rupture of membranes, unspecified as to length of time between rupture and onset of labor, second trimester (principal); Z3A.21 21 weeks gestation of pregnancy; O32.2XX0 Maternal care for transverse and oblique lie, not applicable or unspecified
CPT/HCPCS: 36415; 76805; 81000; 85025; 87077; 87088; 87185; 89060